=== PATIENT | male | born 1975 | race Caucasian/White ===

== ENCOUNTER → 2019-09-20 15:50 | Outpatient (CLI) | payer BC, SELFPAY ==
--- NOTE | 2019-09-20 16:00 | XR_ITS ---
PROCEDURE: XR FOOT WT BEARING LT 3V CLINICAL INDICATION: pain COMPARISON: No exams were available for comparison FINDINGS: No fracture or dislocation. No lytic or blastic change. There is normal mineralization. There is mild hallux valgus with mild osteoarthritic changes of the 1st MTP joint. There is a cystic area involving the lateral aspect and distal aspect of the 1st metatarsal at the metatarsal neck/head junction which could be related to a periarticular cyst/geode. An area old gout could have a similar appearance. Other findings:Minimal pes planus. IMPRESSION: Degenerative changes 1st metatarsophalangeal joint with hallux valgus and periarticular cystic changes Dictated by: Soham Huitron MD 09/20/2019 16:47 Electronically signed by Soham Huitron MD in [place] 09/20/2019 16:47
--- NOTE | 2019-09-20 16:00 | XR_ITS ---
PROCEDURE: XR FOOT WT BEARING RT 3V CLINICAL INDICATION: pain COMPARISON: No exams were available for comparison FINDINGS: No fracture or dislocation. No lytic or blastic change. There is normal mineralization. Minimal osteoarthritic changes are present at the 1st metatarsophalangeal junction Other findings:None. 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
== END ==
PROVIDERS: PCP Family Medicine; Visit Provider Podiatrist
DX: M79.672 Pain in left foot (principal); M79.671 Pain in right foot
CPT/HCPCS: 73630

== ENCOUNTER 2024-09-15 06:29 | Day surgery (SDC) | payer BC, SELFPAY ==
[2024-09-13 15:30] VITALS: BMI 24.4
[2024-09-15 06:42] VITALS: BP 124/85; PULSE 87; RESP 18; TEMP 36.5; O2SAT 99
[2024-09-15] MEDS: LACTATED RINGERS 1000ML 1,000 ML 50 ML IV (06:54)
--- NOTE | 2024-09-15 07:07 | EXP.ANES.CKL ---
[facility] Disclaimer: The information contained in this section may have been updated after the patient was seen, as this information can be updated by other users. Medical History Elevated liver enzymes History of gastroesophageal reflux (GERD) Surgical History History of esophagogastroduodenoscopy (EGD) History of cholecystectomy Family History Other No significant family history Social History Smoking Status: Never smoker alcohol intake: current alcohol intake frequency: a few times a week substance use type: denies use current occupational status: employed Travel in the last 8 weeks: None caffeine: No Have you lived/traveled outside [place] in past 30 days?: No Contact w/someone who lives/traveled outside US past 30 days?: No Exposure to someone with infectious disease in past 14 days?: No Do you have a fever (greater than 100.4 F or 38 C)?: No Have you tested positive for COVID-19: No Exposed to someone with COVID-19 in past 14 days?: No Do you have a sore throat?: No Do you have a cough?: No Do you have any weakness?: No Are you experiencing any nausea/vomitting?: No Do you have any diarrhea?: No Are you experiencing any unusual bleeding?: No Do you have any muscle aches/pain?: No Do you have any abdominal pain?: No Are you experiencing loss of taste or smell?: No [facility] Anesthesia Checklist Patient Identification Patient Identification: Arm Band Structural Data Admitted From: Home Planned Operative Procedure/s: Colonoscopy Consent for Planned Operative Procedure(s) Verified: Yes Verified Documents: Surgical Consent and History and Physical NPO Status Verified Time NPO: 00:00 Additional verifications Anesthesia Reactions: No Airway Assessment Mallampati Score:: Class II C-Spine Mobility Assessed: Yes TMJ Mobility Assessed: Yes Dentition: Good Dentition Neurological Assessment Level of Consciousness: Awake, Alert and Appropriate Anesthesia Plan Anesthesia Risk discussed: Yes Anesthesia Plan: Verified ASA Class: II Anesthesia Type: MAC
--- NOTE | 2024-09-15 07:43 | P.HP_ITS ---
History of Present Illness *Admission Date: 09/15/24 *Reason for visit:: Screening colonoscopy *History of present illness: Mr. Rutledge is a 49-year-old gentleman who is here for initial screening colonoscopy. The examination is deemed medically necessary for screening colonoscopy. The patient has been seen, interviewed and examined prior to the procedure by both myself and the anesthesia provider. [facility] Disclaimer: The information contained in this section may have been updated after the patient was seen, as this information can be updated by other users. Medical History (Updated 09/15/24 @ 07:44 by Aakash Guzmán II, MD) Elevated liver enzymes History of gastroesophageal reflux (GERD) Surgical History History of esophagogastroduodenoscopy (EGD) History of cholecystectomy Family History Other No significant family history Social History Smoking Status: Never smoker alcohol intake: current alcohol intake frequency: a few times a week substance use type: denies use current occupational status: employed Travel in the last 8 weeks: None caffeine: No Have you lived/traveled outside US in past 30 days?: No Contact w/someone who lives/traveled outside US past 30 days?: No Exposure to someone with infectious disease in past 14 days?: No Do you have a fever (greater than 100.4 F or 38 C)?: No Have you tested positive for COVID-19: No Exposed to someone with COVID-19 in past 14 days?: No Do you have a sore throat?: No Do you have a cough?: No Do you have any weakness?: No Are you experiencing any nausea/vomitting?: No Do you have any diarrhea?: No Are you experiencing any unusual bleeding?: No Do you have any muscle aches/pain?: No Do you have any abdominal pain?: No Are you experiencing loss of taste or smell?: No Other Medical History Have you received the Pneumonia Vaccine: No Review of Systems Review of Systems Review of systems (narrative): Negative *Cardiovascular Comments: Negative *Gastrointestinal Comments: Negative *Genitourinary Comments: Negative *Musculoskeletal Comments: Negative *Neurologic Comments: Negative Meds Home Medications and Allergies Home Medications ?Medication ?Instructions ?Recorded ?Confirmed ?Type lansoprazole 30 mg capsule,delayed 30 mg PO DAILY 09/26/19 09/15/24 History release fenofibrate 160 mg tablet 160 mg PO DAILY 09/15/24 09/15/24 History New Prescriptions to Start Prescriptions: Allergies Allergy/AdvReac Type Severity Reaction Status Date / Time No Known Allergies Allergy Verified 09/15/24 06:40 Exam Data for Last 24 hours Vital signs and Labs for Last 24 Hours: Temp Pulse Resp BP Pulse Ox O2 Del Method 97.7 F 87 18 124/85 99 Room Air 09/15/24 06:42 09/15/24 06:42 09/15/24 06:42 09/15/24 06:42 09/15/24 06:42 09/15/24 06:42 I & O for Last 24 hours: Intake & Output 09/12/24 09/13/24 09/14/24 09/15/24 23:59 23:59 23:59 23:59 Weight 180 lb *Routine HEENT Exam Head: Present normocephalic Eye: Present EOMI and PERRL ENT: Present mucous membranes moist *Routine Neck Exam Neck: Present supple *Routine Respiratory Exam Respiratory: Present CTA bilaterally *Routine Cardiovascular Exam Cardiovascular: Present RRR *Routine Abdominal Exam Abdominal: Present soft and normoactive bowel sounds; Absent tenderness *Routine Rectal Exam Rectal:: deferred *Routine Genitalia Exam Genitalia:: deferred *Routine Extremities Exam Extremities: Absent cyanosis, clubbing or edema *Routine Skin Exam Skin: Present warm; Absent rash *Routine Neurological Exam Neurological: Present alert and oriented X3 Assessment and Plan *Assessment and plan (1) Screening for colon cancer: Status: Acute Category: Medical Code(s): Z12.11 - Encounter for screening for malignant neoplasm of colon Plan A/P: 1. Screening for colon cancer is the preprocedural diagnosis. The patient will be anesthetized/sedated using MAC sedation. The patient has been seen and examined. Cardiac and lung assessment prior to the examination is stable. Proceed with planned screening colonoscopy
[2024-09-15 07:46] VITALS: O2SAT 95
--- NOTE | 2024-09-15 08:02 | P.PCN_ITS ---
[facility] Procedure Note Date: 09/15/24 Time: 08:02 Procedure Note:: Colonoscopy Procedure Report: Colonoscopy with cold snare polypectomy and monopolar ablation/coagulation of internal hemorrhoids Endoscopist: Aakash Guzmán II, MD Referring physician: Francisco Blas MD Date of Procedure: September 15, 2024 Equipment: Olympus 190 variable stiffness pediatric colonoscope Sedation: MAC sedation Indication: Mr. Rutledge is a 49-year-old gentleman who is here for initial screening colonoscopy. He reports no abdominal pain, weight loss, change in his bowel habits or rectal bleeding. He does get occasional spotting of blood on the toilet tissue from internal hemorrhoids. He reports no hemorrhoidal prolapse. His grandmother had colon cancer in her mid 90s. Procedure: Prior to the procedure, a history and physical exam was performed, and patient's medications and allergies were reviewed. The risks, benefits and alternatives of the sedation and procedure were discussed with the patient. All questions were answered and informed consent was obtained. The patient was brought to the procedure room. Patient identification and proposed procedure were verified by the physician and the nurse. The patient was placed in a left lateral decubitus position and the scope was passed under direct vision. Throughout the procedure, the patient's blood pressure, pulse, and oxygen saturations were monitored continuously. The colonoscopy was accomplished without difficulty. The patient tolerated the procedure well. Findings: On digital rectal examination there was normal rectal tone. There were no external hemorrhoids. The colonoscope was introduced through the anal canal to the rectum and advanced to the cecum. The ileocecal valve and appendiceal orifice were identified. The scope was advanced a short distance into the ileum which appeared grossly normal. The scope was then withdrawn into the colon. There were 6 polyps (cecal x 1 (5 mm), ascending x 2 (4 and 4 mm), transverse x 1 (9 mm) and descending x 2 (4 and 5 mm)). These were all removed via cold snare polypectomy. The remaining cecum, ascending and transverse colon and mucosa were grossly normal. There were scattered diverticuli throughout the descending and sigmoid colon (LEFT colon). The rectum itself was normal. Upon retroflexion within the rectum there were grade 2-3 internal hemorrhoids. 3 columns of hemorrhoids were ablated/coagulated using monopolar force coagulation. The preparation was excellent throughout with Berclair Preparation Score of 9. The cecal time was 13 minutes. Impression: 1. Colonic polyps x 6 2. Left-sided diverticulosis 3. Grade 2-3 internal hemorrhoids status post monopolar ablation/coagulation Plan: I will follow-up the polyp histology and recommend repeat surveillance colonoscopy again in 3 years based upon the pathology. I would encourage psyllium bulking fiber supplementation on a long-term daily maintenance basis.
[2024-09-15 08:07] VITALS: BP 106/73; PULSE 80; RESP 15; TEMP 36.2; O2SAT 96
[2024-09-15 08:17] VITALS: BP 103/72; PULSE 80; RESP 16; O2SAT 97
[2024-09-15 08:27] VITALS: BP 124/78; PULSE 75; RESP 18; O2SAT 98
[2024-09-15 08:37] VITALS: BP 113/66; PULSE 71; RESP 18; O2SAT 97
== END 2024-09-15 08:45 | disposition home or self-care (01) ==
PROVIDERS: PCP Family Medicine; Visit Provider Internal Medicine Gastroenterology
PROC: 0DJD8ZZ Inspection of Lower Intestinal Tract, Via Natural or Artificial Opening Endoscopic (ICD-10-PCS; CPT 45378; principal; 2024-09-15 08:00)
DX: K63.5 Polyp of colon (principal); K57.30 Diverticulosis of large intestine without perforation or abscess without bleeding; K64.8 Other hemorrhoids; Z12.11 Encounter for screening for malignant neoplasm of colon
CPT/HCPCS: 45385; 45388; J7120

== ENCOUNTER 2025-02-01 12:04 | Outpatient (CLI) | payer BC, SELFPAY ==
--- OUTSIDE RECORDS SUMMARY | 2024-06-02 07:45 | XMS_ITS ---
Author Organization [facility] Address [address] [place] [id number] Care Team Providers Care Mainspring Former Name Role Phone Francisco Blas Primary Care Provider Allergies No Known Allergies Results Component Value Reference Range Notes CBC Venipuncture (in house) Reviewed date:06/02/2024 02:27:01 PM Interpretation: Performing Lab: Notes/Report: wbc 6.6 3.5 - 10 lymph 38.8% 15 - 50 mid 7.6% 2 - 15 gran 53.6% 35 - 80 rbc 4.97 3.5 - 5.5 hgb 15.6 11.5 - 16.5 hct 45.7 35 - 55 mcv 91.8 75 - 100 mch 31.5 25 - 35 mchc 34.3 31 - 38 platlet 212 100 - 400 P-Vitamin B12 Reviewed date:06/03/2024 04:46:56 PM Interpretation:Normal Performing Lab: Notes/Report: Test performed by [email or web address] [address] [place], [place] [address] , [address], [place] [address] Chevy Grimes MD, Horticultural Farmer CLIA: [id number] Vitamin B12 030 908-5035 pg/mL P-Comprehensive Metabolic Pa vaishali (CMP) Reviewed date:06/03/2024 04:46:57 PM Interpretation:ALT 90, AST 48 Performing Lab: Notes/Report: Test performed by [email or web address] [address] [place] [address] Abby Mendoza, [address], [place] [address] Chevy Grimes MD, Horticultural Farmer CLIA: [id number] Sodium 141 135-145 mmol/L Potassium 4.1 3.5-5.3 mmol/L Chloride 102 97-108 mmol/L CO2 26 22-32 mmol/L Glucose 80 65-99 mg/dL BUN 17 6-20 mg/dL Creatinine 1.08 0.70-1.30 mg/dL Calcium 9.9 8.6-10.4 mg/dL eGFR by Creatinine 84 >59 mL/min/1.73m2 Protein 7.0 6.0-8.3 g/dL Albumin 4.4 3.5-5.3 g/dL Alkaline Phosphatase 73 40-129 IU/L ALT (SGPT) 90 <5-55 IU/L AST (SGOT) 48 <5-46 IU/L Bilirubin, Total 0.6 <0.2-1.2 mg/dL A/G Ratio 1.7 1.1-2.5 P-Lipid Panel Reviewed date:06/03/2024 04:46:57 PM Interpretation:Trig 189, Non-HDL 153 Performing Lab: Notes/Report: Test performed by [email or web address], [address] , [address], [place] [address] Chevy Grimes MD, Horticultural Farmer CLIA: [id number] Cholesterol 196 <200 mg/dL Triglycerides 189 <150 mg/dL HDL Cholesterol 43 >39 mg/dL Cholesterol / HDL Ratio 4.56 0.00-4.99 Ratio Non-HDL Cholesterol 153 <130 mg/dL LDL Cholesterol (Calculation) 115 <130 mg/dL LDL Cholesterol Levels* Less than 100 mg/dL Optimal 100 to 129 mg/dL Near Optimal/ Above Optimal 130 to 159 mg/dL Borderline High 160 to 189 mg/dL High 190 mg/dL and above Very High * Categories as recommended by the 2004 ATPIII guidelines LDL/HDL Ratio 2.7 <3.3 Ratio LDL Cholesterol Patient History Test Date: 01/20/2023 LDL Results: 96 Units: mg/dL % Change: - Test Date: 02/04/2024 LDL Results: 99 Units: mg/dL % Change: +3% Test Date: 06/02/2024 LDL Results: 115 Units: mg/dL % Change: +16% P-Vitamin D 25-Hydroxy Reviewed date:06/03/2024 04:46:57 PM Interpretation:Normal Performing Lab: Notes/Report: Test performed by [email or web address] [address] [place] [address] , [address], [place] [address] Chevy Grimes MD, Horticultural Farmer CLIA: [id number] Vitamin D 25-Hydroxy 57.1 30.0-100.0 ng/mL Interpretation of Vitamin D 25 OH: < 20 ng/mL - Deficiency 20 - 29 ng/mL - Insufficiency 30 - 100 ng/mL - Sufficiency > 100 ng/mL - Super-therapeutic- toxicity may occur above this level. Clinical correlation required. REASON FOR VISIT discuss medication Medications Medication SIG (Take, Route, Frequency, Duration) Notes Start Date End Date Status Fenofibrate 160 MG 1 tablet Orally Once a day; Duration: 90 days 01/09/2023 Active Sildenafil Citrate 50 MG 1or 2 tablet as needed Orally Once a day 06/02/2024 Active Lansoprazole 30 MG 1 cap(s) orally once a day; Duration: 30 day(s) Active B-12 2500 MCG 1 tab(s) orally once a day 02/13/2014 Active SM Vitamin D3 100 MCG (4000 UT) 1 cap(s) orally once a day 02/13/2014 Active Problems Problem Type SNOMED Code ICD Code Onset Dates Problem Status W/U Status Risk Notes Problem Erectile dysfunction, unspecified erectile dysfunction type (N52.9) Active confirmed Vital Signs Blood pressure systolic 124 mm Hg 06/02/20 24 Blood pressure diastolic 82 mm Hg 024 Heart Rate 70 /min 06/02/2024 Height 71.50 in 06/02/2024 Weight 182.2 lbs 06/02/2024 BMI 25.05 kg/m2 06/02/2024 Encounters Encounter Location Date Provider Diagnosis [facility] [address] [facility] [address] [place], [place] [id number] 06/02/2024 Francisco Blas Hypertriglyceridemia E78.1 ; Vitamin D deficiency E55.9 ; Elevated LFTs R79.89 ; Erectile dysfunction, unspecified erectile dysfunction type N52.9 and snf use of drug Z79.899 Assessments Encounter Date Diagnosis (ICD Code) Assessment Notes Treatment Notes Treatment Clinical Notes Section Notes 06/02/2024 Hypertriglyceridemia (ICD-10 - E78.1) 06/02/2024 Vitamin D deficiency (ICD-10 - E55.9) 06/02/2024 Elevated LFTs (ICD-1 0 - R79.89) 06/02/2024 Erectile dysfunction , unspecified erectile dysfunction type (ICD-10 - N52.9) 06/02/2024 snf use of juan j g (ICD-10 - Z79.899) Plan Of Treatment Medication Medication Name Sig Start Date Stop Date Notes Fenofibrate 160 MG 1 tablet Orally Once a day; Duration: 90 days 01/09/2023 Sildenafil Citrate 50 MG 1or 2 tablet as needed Orally Once a day 06/02/2024 Next Appt Details Follow Up: 6 Months, Reason: Progress Notes * Consuelo POOLEeDOB:1975 (49 yo M)Acc No.[id number]:06/02/2024 Progress Notes Patient: Edna MEDEROS Provider: Lulu Blas M.D. :1975 A ge:49 Y S ex:Male Date:06/02/2024 Address:[address] [place] [address] [address], [place], [id number] Subjective: * Chief Complaints: * 1 . Discuss medication. * HPI: C ardiology: 49 year old male presents with c/o Hyperlipidemia P t here to f/u, pt states he is not fasting today. Pt states he has not been taking Fenofibrate and his said that he needs to be. Pt here to have cholesterol checked to see if he needs to be taking the medication still . * ROS: D ERMATOLOGY: no R bill. n o H tashia. M ABHINAV REPRODUCTIVE: Difficulty with erection y es, d ifficulty maintaining erections. G ASTROENTEROLOGY: no N ausea. n o V omiting. U ROLOGY: no D ifficulty urinating. n o B lood in urine. * Medical History: E sophageal Reflux, Schatzki's Ring, Plantar Fasciitis, Vitamin D deficiency, Hypertriglyceridemia. * Surgical History: E GD , Sinus . * Hospitalization/Major Diagno stic Procedure: D enies Past Hospitalization. * Family History: F ather: alive, family history unknown . M other: alive, diagnosed with Hypertension. S iblings: alive, diagnosed with Heart Disease. C hildren: alive. 1 sister(s) - healthy. 1 son(s) - healthy. . * Social History: C URRENT TOBACCO USE S moking Status: P atient does NOT smoke. * Medications: T aking SM Vitamin D3 100 MCG (4000 UT) Capsule 1 cap(s) orally once a day , Taking B-12 2500 MCG Tablet 1 tab(s) orally once a day , Taking Lansoprazole 30 MG Capsule Delayed Release 1 cap(s) orally once a day , Not-Taking Fenofibrate 160 MG Tablet 1 tablet Orally Once a day , Medication List reviewed and reconciled with the patient * Allergies: N .K.D.A. Objective: * Vitals: W t:182.2, Temp:97.9, BP:124/82, HR:70, Nurse:kallie, Ht: 71.50, BMI:25.05. * Examination: C ardiology: General Appearance: p leasant, NAD. H eart sounds: R RR, normal S1, S2. L ungs: c lear, no rales or wheezes. E xtremities: n o leg edema. Assessment: * Assessment: 1. H ypertriglyceridemia - E78.1 (Primary) 2 . V itamin D deficiency - E55.9 3 . E levated LFTs - R79.89 4 . E rectile dysfunction, unspecified erectile dysfunction type - N52.9 5 . L derick term use of drug - Z79.899? Plan: * Treatment: Value Reference Range A /G Ratio 1.7 1.1-2.5 - * A lbumin 4.4 3.5-5.3 - g/dL * A lkaline Phosphatase 73 40-129 - IU/L * A LT (SGPT) 90 H <5-55 - IU/L * A ST (SGOT) 48 H <5-46 - IU/L * B ilirubin, Total 0.6 <0.2-1.2 - mg/dL * B UN 17 6-20 - mg/dL * C alcium 9.9 8.6-10.4 - mg/dL * C hloride 102 97-108 - mmol/L * C O2 26 22-32 - mmol/L * C reatinine 1.08 0.70-1.30 - mg/dL * G lucose 80 65-99 - mg/dL * P otassium 4.1 3.5-5.3 - mmol/L * S odium 141 135-145 - mmol/L * P rotein 7.0 6.0-8.3 - g/dL * e GFR by Creatinine 84 >59 - mL/min/1.73m2 * Alissa Whittaker 06/03/2024 4:46 :46 PM >See phone encounter ?LAB: P-Lipid Panel (Collection Date & Time - 06/02/2024 12:00 PM)?Trig 189, Non-HDL 153* Value Reference Range C holesterol / HDL Ratio 4.56 0.00-4.99 - Ratio * C holesterol 196 <200 - mg/dL * H DL Cholesterol 43 >39 - mg/dL * L DL Cholesterol (Calculation) 115 <130 - mg/d L * L DL/HDL Ratio 2.7 <3.3 - Ratio * N on-HDL Cholesterol 153 H <130 - mg/dL * T riglycerides 189 H <150 - mg/dL * PanfiloAlissa 06/03/2024 4:46 :46 PM >See phone encounter 2.?Vitamin D deficiency?LAB: P-Vitamin D 25-Hydroxy (Collection Date & Time - 06/02/2024 12:00 PM)? Normal* Value Reference Range V itamin D 25-Hydroxy 57.1 30.0-100.0 - ng/mL * Alissa Whittaker 06/03/2024 4:46 :46 PM >See phone encounter 3.?Elevated LFTs?LAB: P-Comprehensive Metabolic Panel (CMP) (Collection Date & Time - 06/02/2024 12:00 PM)?ALT 90, AST 48* Value Reference Range A /G Ratio 1.7 1.1-2.5 - * A lbumin 4.4 3.5-5.3 - g/dL * A lkaline Phosphatase 73 40-129 - IU/L * A LT (SGPT) 90 H <5-55 - IU/L * A ST (SGOT) 48 H <5-46 - IU/L * B ilirubin, Total 0.6 <0.2-1.2 - mg/dL * B UN 17 6-20 - mg/dL * C alcium 9.9 8.6-10.4 - mg/dL * C hloride 102 97-108 - mmol/L * C O2 26 22-32 - mmol/L * C reatinine 1.08 0.70-1.30 - mg/dL * G lucose 80 65-99 - mg/dL * P otassium 4.1 3.5-5.3 - mmol/L * S odium 141 135-145 - mmol/L * P rotein 7.0 6.0-8.3 - g/dL * e GFR by Creatinine 84 >59 - mL/min/1.73m2 * Alissa Whittaker 06/03/2024 4:46 :46 PM >See phone encounter 4.?Erectile dysfunction, unspecified erectile dysfunction type? Start Sildenafil Citrate Tablet, 50 MG, 1or 2 tablet as needed, Orally, Once a day, 20, Refills 1. ?5.?rat exterminator use of drug?LAB: P-Vitamin B12 (Collection Date & Time - 06/02/2024 12:00 PM)?Normal* Value Reference Range V itamin B12 981 676-5490 - pg/mL * Alissa Whittaker 06/03/2024 4:46 :46 PM >See phone encounter ?LAB: P-Comprehensive Metabolic Panel (CMP) (Collection Date & Time - 06/02/2024 12:00 PM)?ALT 90, AST 48* Value Reference Range A /G Ratio 1.7 1.1-2.5 - * A lbumin 4.4 3.5-5.3 - g/dL * A lkaline Phosphatase 73 40-129 - IU/L * A LT (SGPT) 90 H <5-55 - IU/L * A ST (SGOT) 48 H <5-46 - IU/L * B ilirubin, Total 0.6 <0.2-1.2 - mg/dL * B UN 17 6-20 - mg/dL * C alcium 9.9 8.6-10.4 - mg/dL * C hloride 102 97-108 - mmol/L * C O2 26 22-32 - mmol/L * C reatinine 1.08 0.70-1.30 - mg/dL * G lucose 80 65-99 - mg/dL * P otassium 4.1 3.5-5.3 - mmol/L * S odium 141 135-145 - mmol/L * P rotein 7.0 6.0-8.3 - g/dL * e GFR by Creatinine 84 >59 - mL/min/1.73m2 * Alissa Whittaker 06/03/2024 4:46 :46 PM >See phone encounter ?LAB: CBC Venipuncture (in house) (Collection Date & Time - 06/02/2024)* Value Reference Range w bc 6.6 3.5 - 10 * l ymph 38.8% 15 - 50 * m id 7.6% 2 - 15 * g ran 53.6% 35 - 80 * r bc 4.97 3.5 - 5.5 * h gb 15.6 11.5 - 16.5 * h ct 45.7 35 - 55 * m cv 91.8 75 - 100 * m ch 31.5 25 - 35 * m chc 34.3 31 - 38 * p latlet 212 100 - 400 * Graciela Cruz 06/02/2024 12:20:4 1 PM >Francisco Blas 06/02/2024 2:26:54 PM > * Procedure Codes: 8 5025 CBC WITH AUTO DIFF * Follow Up: 6 Months * Images: Billing Information: * Visit Code: 90769 Office Visit, Est Pt., Level 4. * Procedure Codes: 92245 CBC WITH AUTO DIFF. * Electronic signature of Eliana Blas MD on 02/01/2025 at 12:07 PM EDT Sign off status: Pending * Provider: Lulu Blas M.D. Date: 1 08/02/2023 Generated for Janet hwang/Annie/Yaquelinitting on: 0 02/01/2025 12:07 PM EDT History and Physical Notes * HPI (History of Present Illness) Category Sub-Category Detail Notes Category Not es Cardiology Hyperlipidemia Pt here to f/u, pt states he is not fasting today. Pt states he has not been taking Fenofibrate and his said that he needs to be. Pt here to have cholesterol checked to see if he needs to be taking the medication still Examination Category Sub-Category Detail Notes Category Not es Cardiology Lungs: clear, no rales or wheezes Heart sounds: RRR, normal S1, S2 Extremities: no leg edema General Appearance: pleasant, NAD
--- OUTSIDE RECORDS SUMMARY | 2024-08-18 07:45 | XMS_ITS ---
Author Organization [facility] Address [address] [place] [id number] Care Team Providers Care Oracle Ebs Architect Name Role Phone Francisco Blas Primary Care Provider Allergies No Known Allergies Results Component Value Reference Range Notes Influenza Screen (in house) Reviewed date:08/18/2024 02:18:59 PM Interpretation: Performing Lab: Notes/Report: results Pos A Covid test (in house) Reviewed date:08/18/2024 02:19:07 PM Interpretation: Performing Lab: Notes/Report: Result: Neg REASON FOR VISIT poss sinus infection Medications Medication SIG (Take, Route, Frequency, Duration) Notes Start Date End Date Status SM Vitamin D3 100 MCG (4000 UT) 1 cap(s) orally once a day 02/13/2014 Active B-12 2500 MCG 1 tab(s) orally once a day 02/13/2014 Active Lansoprazole 30 MG 1 cap(s) orally once a day; Duration: 30 day(s) Active Fenofibrate 160 MG 1 tablet Orally Once a day; Duration: 90 days 01/09/2023 Active Sildenafil Citrate 50 MG 1or 2 tablet as needed Orally Once a day 06/02/2024 Active Tamiflu 75 MG 1 capsule Orally Twi ce a day; Duration: 5 day(s) 08/18/2024 Active Promethazine-DM 6.25-15 MG/5ML 5 ml as needed Orally every 6 hrs 08/18/2024 Active Vital Signs Blood pressure systolic 132 mm Hg 08/18/19 25 Blood pressure diastolic 80 mm Hg 025 Heart Rate 99 /min 08/18/2024 Height 71.50 in 08/18/2024 Weight 182 lbs 08/18/2024 BMI 25.03 kg/m2 08/18/2024 Encounters Encounter Location Date Provider Diagnosis [facility] [address] [facility] [address] [facility] [address] [place] [id number] 08/18/2024 Francisco Blas Influenza A J 10.1 Assessments Encounter Date Diagnosis (ICD Code) Assessment Notes Treatment Notes Treatment Clinical Notes Section Notes 08/18/2024 Influenza A (ICD-10 - J10.1) 08/18/2024 Other Plan fasting labs in 3 weeks Plan Of Treatment Medication Medication Name Sig Start Date Stop Date Notes Tamiflu 75 MG 1 capsule Orally Twi ce a day; Duration: 5 day(s) 08/18/2024 Promethazine-DM 6.25-15 MG/5ML 5 ml as n eeded Orally every 6 hrs 08/18/2024 Treatment Notes Assessment Notes Other Plan fasting labs in 3 weeks Next Appt Details Follow Up: prn, Reason: Progress Notes * Consuelo POOLEeDOB:1975 (49 yo M)Acc No.[id number]:08/18/2024 Progress Notes Patient: Edna MEDEROS Provider: Lulu Blas M.D. :1975 A ge:49 Y S ex:Male Date:08/18/2024 Address:[address] [place] [address] [address] , [place], [id number] Subjective: * Chief Complaints: * 1 . Poss sinus infection. * HPI: E NT/respiratory: 49 year old male presents with c/o cough P t complains of dry without any sputum production cough that started yesterday. Associated with nasal congestion and body aches . * ROS: D ERMATOLOGY: no R bill. n o H tashia. G ASTROENTEROLOGY: no N ausea. n o [...] cap(s) orally once a day , Taking Fenofibrate 160 MG Tablet 1 tablet Orally Once a day , Taking Sildenafil Citrate 50 MG Tablet 1or 2 tablet as needed Orally Once a day , Medication List reviewed and reconciled with the patient * Allergies: N .K.D.A. Objective: * Vitals: W t:182, Temp:98.8, BP:132/80, HR:99, O2 Sat:98% on RA, Nurse:kallie, Ht: 71.50, BMI:25.03. * Examination: E NT/Respiratory: General Appearance: N AD. E yes: P ERRLA, sclera clear. N cristal : Shotty, nontender adenopathy. H eart : R RR, normal S1 S2. L ungs: c lear to auscultation bilaterally. Assessment: * Assessment: 1. I kuldip Thompson - J10.1 (Primary) Plan: * Treatment: Value Reference Range r esults Pos A Carroll AnthonyGraciela 08/18/2024 11:55:2 1 AM > , Provider reviewed results while patient in office. ?LAB: Covid test (in house) (Collection Date & Time - 08/18/2024)* Value Reference Range R esult: Neg Graciela Coffey 08/18/2024 11:57:2 9 AM > , Provider reviewed results while patient in office. 2.?Others? Notes: Plan fasting labs in 3 weeks?? * Procedure Codes: 9 4760 [place], [address] Flu Test- Nasal Swab, Modifiers: QW , 97052 COVID TEST IN HOUSE, Modifiers: QW * Follow Up: p rn * Images: Billing Information: * Visit Code: 34889 Office Visit, Est Pt., Level 3. * Procedure Codes: [address] [place]. [address] Flu Test- Nasal Swab. Modifiers: QW 45207 COVID TEST IN HOUSE. Modifiers: QW * Electronic signature of Eliana Blas MD on 02/01/2025 at 12:06 PM EDT Sign off status: Pending * Provider: Lulu Blas M.D. Date: 0 08/18/2024 Generated for Janet hwang/Annie/eTransmitting on: 0 02/01/2025 12:06 PM EDT History and Physical Notes * HPI (History of Present Illness) Category Sub-Category Detail Notes Category Not es ENT/respiratory cough Pt complains of dry without any sputum production cough that started yesterday. Associated with nasal congestion and body aches Examination Category Sub-Category Detail Notes Category Not es ENT/Respiratory Neck : Shotty, nontender adenopa thy Heart : RRR, normal S1 S2 Lungs: clear to auscultatio n bilaterally General Appearance: NAD Eyes: PERRLA, sclera clear
--- NOTE | 2025-02-01 12:07 | XR_ITS ---
FINAL REPORT CLINICAL HISTORY: PAIN COMPARISON: None FINDINGS: LEFT FOOT Three views of the left foot demonstrate no acute fracture or dislocation. There are mild hypertrophic changes of osteoarthritis of the 1st MTP joint. Mild lateral subluxation of the 1st proximal phalanx is noted. There is a small plantar spur. The soft tissues are unremarkable. IMPRESSION: Mild changes of osteoarthritis without acute bony abnormality. Reviewed, Interpreted and Dictated by Khoa Williamson MD Transcribed by Kyra Li Authenticated and [facility]
--- OUTSIDE RECORDS SUMMARY | 2025-02-01 12:07 | XMS_ITS | Patient Health Record ---
Author Organization [facility] Address [address] [place] [id number] Care Team Providers Care Head Tennis Coach Name Role Phone Francisco Blas Primary Care Provider Loida Malik Unavailable [phone] Allergies No Known Allergies Results Component Value Reference Range Notes Covid test (in house) Reviewed date:08/18/2024 02:19:07 PM Interpretation: Performing Lab: Notes/Report: Result: Neg Influenza Screen (in house) Reviewed date:08/18/2024 02:18:59 PM Interpretation: Performing Lab: Notes/Report: results Pos A CBC Venipuncture (in house) Reviewed date:06/02/2024 02:27:01 [...] Interpretation:Normal Performing Lab: Notes/Report: Test performed by [facility], [facility] [address] [place] [address] , [address], [place] [address] Chevy Grimes MD, [employer] CLIA: [id number] Vitamin B12 252 021-5435 pg/mL P-Comprehensive Metabolic Pa vaishali (CMP) Reviewed date:06/03/2024 04:46:57 PM Interpretation:ALT 90, AST 48 Performing Lab: Notes/Report: Test performed by [facility] [address] [place] [address] , [address], [place] [address] Chevy Grimes MD, [employer] CLIA: [id number] Sodium 141 135-145 mmol/L Potassium 4.1 3.5-5.3 [...] 153 Performing Lab: Notes/Report: Test performed by [facility] [address] [place] [address] [address], [place] [address] Chevy Grimes MD, [employer] CLIA: [id number] Cholesterol 196 <200 mg/dL Triglycerides 189 <150 [...] Interpretation:Normal Performing Lab: Notes/Report: Test performed by [facility], [address] , [place] [address] Chevy Grimes MD, [employer] CLIA: [id number] Vitamin D 25-Hydroxy 57.1 30.0-100.0 ng/mL Interpretation of Vitamin D 25 OH: < 20 ng/mL - Deficiency 20 - 29 ng/mL - Insufficiency 30 - 100 ng/mL - Sufficiency > 100 ng/mL - Super-therapeutic- toxicity may occur above this level. Clinical correlation required. Pathology evaluation Reviewed date:09/19/2024 11:55:32 AM Interpretation:Negative Performing Lab: Notes/Report: Negative CBC Venipuncture (in house) Reviewed date:02/05/2024 11:15:23 AM Interpretation: Performing Lab: Notes/Report: wbc 5.5 3.5 - 10 lymph 38.2% 15 - 50 mid 8.0% 2 - 15 gran 53.8% 35 - 80 rbc 4.70 3.5 - 5.5 hgb 15.2 11.5 - 16.5 hct 43.8 35 - 55 mcv 93.1 75 - 100 mch 32.3 25 - 35 mchc 34.6 31 - 38 platlet 168 100 - 400 Glycohemoglobin A1c (in hous e) Reviewed date:02/05/2024 11:15:23 AM Interpretation:5 Performing Lab: Notes/Report: 5 glycohemoglobin 5.0% 5 - 6.5 % P-Comprehensive Metabolic Pa vaishali (CMP) Reviewed date:02/05/2024 11:15:23 AM Interpretation:alt 65 Performing Lab: Notes/Report: Test performed by [facility], [facility] , [address], [place] [address] Chevy Grimes MD, [employer] CLIA: [id number] Sodium 143 135-145 mmol/L Potassium 4.6 3.5-5.3 mmol/L Chloride 105 97-108 mmol/L CO2 26 22-32 mmol/L Glucose 98 65-99 mg/dL BUN 16 6-20 mg/dL Creatinine 1.25 0.70-1.30 mg/dL Calcium 9.4 8.6-10.4 mg/dL eGFR by Creatinine 71 >59 mL/min/1.73m2 Protein 6.5 6.0-8.3 g/dL Albumin 4.6 3.5-5.3 g/dL Alkaline Phosphatase 69 40-129 IU/L ALT (SGPT) 65 <5-55 IU/L AST (SGOT) 38 <5-46 IU/L Bilirubin, Total 0.5 <0.2-1.2 mg/dL A/G Ratio 2.4 1.1-2.5 mg/dL P-Lipid Panel Reviewed date:02/05/2024 11:15:23 AM Interpretation:trigs 217, hdl 38, non-hdl 142 Performing Lab: Notes/Report: Test performed by [facility], [place] [address] [facility] , [place] [address] Chevy Grimes MD, [employer] CLIA: [id number] Cholesterol 180 <200 mg/dL Triglycerides 217 <150 mg/dL HDL Cholesterol 38 >39 mg/dL Cholesterol / HDL Ratio 4.74 0.00-4.99 Ratio Non-HDL Cholesterol 142 <130 mg/dL LDL Cholesterol (Calculation) 99 <130 mg/dL LDL Cholesterol Levels* Less than 100 mg/dL Optimal 100 to 129 mg/dL Near Optimal/ Above Optimal 130 to 159 mg/dL Borderline High 160 to 189 mg/dL High 190 mg/dL and above Very High * Categories as recommended by the 2004 ATPIII guidelines LDL/HDL Ratio 2.6 <3.3 Ratio LDL Cholesterol Patient History Test Date: 01/05/2023 LDL Results: SEE COMMENT Units: mg/dL % Change: - Test Date: 01/20/2023 LDL Results: 96 Units: mg/dL % Change: - Test Date: 02/04/2024 LDL Results: 99 Units: mg/dL % Change: +3% P-PSA Reviewed date:02/05/2024 11:15:23 AM Interpretation:Normal Performing Lab: Notes/Report: Test performed by [facility] [address] [place] [address] , [facility], [place] [id number] Chevy Grimes MD, [employer] CLIA: [id number] PSA 0.54 <4.00 ng/mL Please note this is an ultrasensitive PSA assay with a lower limit of detection of 0.014 ng/mL. This test is performed by the [employer] ECLIA methodology. Values obtained with different assay methods or kits cannot be directly compared. P-Vitamin D 25-Hydroxy Reviewed date:02/05/2024 11:15:23 AM Interpretation:Normal Performing Lab: Notes/Report: Test performed by [facility] [address] [place] [address] , [address], [place] [address] Chevy Grimes MD, [employer] CLIA: [id number] Vitamin D 25-Hydroxy 51.0 30.0-100.0 ng/mL Interpretation of Vitamin D 25 OH: < 20 ng/mL - Deficiency 20 - 29 ng/mL - Insufficiency 30 - 100 ng/mL - Sufficiency > 100 ng/mL - Super-therapeutic- toxicity may occur above this level. Clinical correlation required. Reason For Referral No Information Medications Medication SIG (Take, Route, Frequency, Duration) Notes Start Date End Date Status Fenofibrate 160 MG 1 tablet Orally Once a day; Duration: 90 days 01/09/2023 Active Lansoprazole 30 MG 1 cap(s) orally once a day; Duration: 90 days Active Sildenafil Citrate 50 MG 1or 2 tablet as needed Orally Once a day 06/02/2024 Active SM Vitamin D3 100 MCG (4000 UT) 1 cap(s) orally once a day 02/13/2014 Active B-12 2500 MCG 1 tab(s) orally once a day 02/13/2014 Active Problems Problem Type SNOMED Code ICD Code Onset Dates Problem Status W/U Status Risk Notes Problem Vitamin D deficiency (17171723) Vitamin D deficiency (E55.9) Active confirmed Problem Hypertriglyceridemia (579333870) Hypertriglyceridemia (E78.1) Active confirmed Problem Gastroesophageal reflux disease (075060525) Gastroesophageal reflux disease, esophagitis presence not specified (K21.9) Active confirmed Problem Erectile dysfunction (disorder) (722171923) Erectile dysfunction, unspecified erectile dysfunction type (N52.9) Active confirmed Problem Schatzki's ring (48148328) Schatzki's ring (K22.2) Active confirmed Vital Signs Heart Rate 78 /min 02/01/2025 Blood pressure diastolic 80 mm Hg 02/01/2025 Height 71.50 in 02/01/2025 Blood pressure systolic 130 mm Hg 02/01/2025 Weight 176.8 lbs 02/01/2025 BMI 24.31 kg/m2 02/01/2025 Encounters Encounter Location Date Provider Diagnosis [facility] [address] [id number] 02/03/2024 Loida Malik Gastroesophageal ref lux disease, esophagitis presence not specified K21.9 ; Hypertriglyceridemia E78.1 and Hyperglycemia R73.9 [facility] [address] [id number] 02/04/2024 Loidanorman Malik Hypertriglyceridemia E78.1 ; Vitamin D deficiency E55.9 ; Hyperglycemia R73.9 and Screening for prostate cancer Z12.5 [facility] [address] [id number] 06/02/2024 Francisco Hye Hypertriglyceridemia E78.1 ; Vitamin D deficiency E55.9 ; Elevated LFTs R79.89 ; Erectile dysfunction, unspecified erectile dysfunction type N52.9 and 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 [facility] [address] [facility] [address] [place] [id number] 08/18/2024 Francisco Hye Influenza A J10.1 [facility] [address] [facility] [address] [place], [place] [id number] 02/01/2025 Francisco Hye Vitamin D deficiency E55.9 ; Gastroesophageal reflux disease, esophagitis presence not specified K21.9 ; Hypertriglyceridemia E78.1 ; Elevated LFTs R79.89 ; Erectile dysfunction, unspecified erectile dysfunction type N52.9 ; senior living use of drug Z79.899 ; Prostate cancer screening Z12.5 and Left foot pain M79.672 [facility] [address] [place], [place] [id number] 02/05/2024 Loida Crowdy [facility] [address] [facility] [address] [place], [place] [id number] 06/03/2024 [facility] [address] [address] [place], [place] [id number] 07/13/2024 Francisco Hye [facility] [address] [facility] [address] [place], [place] [id number] 01/24/2025 Francisco Hye Assessments Encounter Date Diagnosis (ICD Code) Assessment Notes Treatment Notes Treatment Clinical Notes Section Notes 02/03/2024 Hypertriglyceridemia (ICD-10 - E78.1) 02/03/2024 Gastroesophageal ref lux disease, esophagitis presence not specified (ICD-10 - K21.9) 06/02/2024 Vitamin D deficiency (ICD-10 - E55.9) 06/02/2024 Hypertriglyceridemia (ICD-10 - E78.1) 02/04/2024 Vitamin D deficiency (ICD-10 - E55.9) 02/04/2024 Hypertriglyceridemia (ICD-10 - E78.1) 08/18/2024 Influenza A (ICD-10 - J10.1) 02/01/2025 Vitamin D deficiency (ICD-10 - E55.9) 02/01/2025 Gastroesophageal ref lux disease, esophagitis presence not specified (ICD-10 - K21.9) 02/01/2025 Hypertriglyceridemia (ICD-10 - E78.1) 06/02/2024 Elevated LFTs (ICD-1 0 - R79.89) 02/04/2024 Hyperglycemia (ICD-1 0 - R73.9) 02/03/2024 Hyperglycemia (ICD-1 0 - R73.9) 02/01/2025 Elevated LFTs (ICD-1 0 - R79.89) 06/02/2024 Erectile dysfunction , unspecified erectile dysfunction type (ICD-10 - N52.9) 02/04/2024 Screening for prosta te cancer (ICD-10 - Z12.5) 06/02/2024 senior living use of juan j g (ICD-10 - Z79.899) 02/01/2025 Erectile dysfunction , unspecified erectile dysfunction type (ICD-10 - N52.9) 02/01/2025 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 (ICD-10 - Z79.899) 02/01/2025 Left foot pain (ICD- 10 - M79.672) 02/01/2025 Prostate cancer screening (ICD-10 - Z12.5) 02/03/2024 Other Will come in the am fasting for labs (CMP, CBC, Lipid, PSA, A1C, and Vit D) 08/18/2024 Other Plan fasting labs in 3 weeks Plan Of Treatment Pending Test Test Name Order Date X ray : Foot, left 02/01/2025 colonoscopy 07/13/2024 CBC Venipuncture (in house) 02/01/2025 P-Comprehensive Metabolic Panel (CMP) P-PSA 02/01/2025 P-Vitamin D 25-Hydroxy 02/01/2025 Insurance Providers Payer Name Payer Address Payer Phone Subscriber Number Group Number Insured Name Patient Relationship to Insured Coverage Start Date Coverage End Date [employer] [address] [place] [address] [id number] Edna Rutledge Self - patient is the insured Medical (General) History Medical History History ICD Code Esophageal Reflux Schatzki's Ring Plantar Fasciitis Vitamin D deficiency hypertriglyceridemia Surgical History Surgery Date(Month/Year) EGD Sinus
--- OUTSIDE RECORDS SUMMARY | 2025-02-01 12:07 | XMS_ITS | Clinical Summary ---
Author Organization Healthcare Address [address] [place] [address] Care Team Providers Care Metal Turner Name Role Phone Omega Duckworth MD Primary Care Provider [phone] Social History Tobacco Use Types Packs/Day Years Used Date Smoking Tobacco: Never Alcohol Use Standard Drinks/Week Comments Yes 0 (1 standard drink = 0.6 oz pure alcohol) Alcoholic Drinks/day: Minimum alcohol consumption Sex and Gender Information Value Date Recorded Sex Assigned at Not on file Legal Sex Male 7:41 PM EDT Gender Identity Not on file Sexual Orientation Not on file Last Filed Vital Signs Vital Sign Reading Time Taken Comments Blood Pressure - - Pulse - - Temperature - - Respiratory Rate - - Oxygen Saturation - - Inhaled Oxygen Concentration - - Weight 71.7 kg (158 lb 0.1 oz) 01/02/2014 1:57 P M EDT Height 182.9 cm (6') 01/02/2014 1:57 PM EDT Body Mass Index 21.43 01/02/2014 1:57 PM EDT Plan of Treatment Not on file Care Teams Metal Turner Relationship Specialty Start Date End Date Omega Duckworth MD [address] [place] [address] #1 #1 [place] [id number] PCP - General 12/07/20
== END 2025-02-01 23:59 | disposition home or self-care (01) ==
LOC: RAD 12:05
PROVIDERS: PCP Family Medicine; Visit Provider Family Medicine
DX: M19.072 Primary osteoarthritis, left ankle and foot (principal)
CPT/HCPCS: 73630